=== PATIENT | female | born 2005 | race Caucasian/White ===

== ENCOUNTER 2023-10-31 18:02 | Emergency (ER) | payer MEDICARE, OTHER ==
[2023-10-31] MEDS ORDERED: Ketorolac Tromethamine 30 MG (1 mL) VIAL ONE (19:44)
[2023-10-31] MEDS ORDERED: diphenhydrAMINE 50 MG/ML VIAL ONE (19:45)
[2023-10-31] MEDS ORDERED: methylPREDNISolone Sod Succ/PF 125 MG/2 ML VIAL ONE (19:45)
[2023-10-31 20:41] LABS: Pregnancy Test - Urine (BHCG) Negative (Negative); Pregu Control Background? CLEAR/WHITE (CLR/WHITE); Pregu Control Bar Appear? YES (CONTROL BAR); Specific Gravity 1.006 (1.002-1.036)
[2023-10-31 20:50] LABS: Amphetamine Not Detected (NotDetected); Barbiturates Screen Not Detected (NotDetected); Benzodiazepine Screen Not Detected (NotDetected); Cocaine Metabolite Screen Not Detected (NotDetected); Methadone Not Detected (NotDetected); Methamphetamine Not Detected (NotDetected); Opiate Screen Not Detected (NotDetected); Oxycodone Screen Not Detected (NotDetected); Phencyclidine (PCP) Not Detected (NotDetected); THC/Cannabinoid Screen Not Detected (NotDetected); Tricyclic Screen Not Detected (NotDetected)
== END 2023-10-31 21:20 | disposition home or self-care (01) ==
LOC: ERS 18:02
DX: H92.03 Otalgia, bilateral (principal); R51.9 Headache, unspecified; R21 Rash and other nonspecific skin eruption; Z55.6 Problems related to health literacy
CPT/HCPCS: 80306; 81025; 96374; 96375; J1200; J1885; J2930

== ENCOUNTER 2024-09-01 18:55 | Emergency (ER) | payer MEDICARE, MEDICAID | END 2024-09-01 21:10 | disposition home or self-care (01) | LOC: ERS 18:55 | DX: B34.9 Viral infection, unspecified (principal) | CPT/HCPCS: 71046 ==